=== PATIENT | female | born 1980 | race Caucasian/White ===

== ENCOUNTER 2019-08-23 18:34 | Emergency (ER) | payer OTHER ==
[~2019-08-23] VITALS: Ht 157.5 cm; Wt 100.2 kg
[~2019-08-23 18:34] MED LIST: FERROUS SULFAT325 M2 PO; HYD1C TOP; LEXAPRO10 MG PO
[2019-08-23 18:39] VITALS: BP 167/118; Ht 157.5 cm; Wt 100.2 kg
== END 2019-08-23 20:18 | disposition left against medical advice (07) ==
LOC: ED 18:34
DX: R07.89 Other chest pain (principal); R06.02 Shortness of breath; R05 Cough